=== PATIENT | female | born 1950 | race Caucasian/White ===

== ENCOUNTER 2021-09-29 20:20 | Emergency (ER) | payer BC, MEDICARE, OTHER, SELFPAY ==
[2021-09-29] MEDS ORDERED: Ondansetron 4 MG/2 ML SDV IVPUSH ONE (21:27)
[2021-09-29] MEDS ORDERED: Sodium Chloride 0.9% 10 ML Syringe FLUSH PRN (21:27)
[2021-09-29] MEDS ORDERED: HYDROmorphone 0.5 MG/0.5 ML Syringe IVPUSH ONE ×2 (21:27→21:58)
[2021-09-29] MEDS ORDERED: Sodium Chloride 0.9% 1,000 ML IV SCH (21:30)
[2021-09-29 22:14] LABS: ESTIMATED GFR 60 mL/min (>60)
[2021-09-29 22:19] VITALS: BP 134/71; PULSE 71
[2021-09-29] MEDS ORDERED: Morphine 2 MG/ML SYRINGE IVPUSH ONE ×2 (22:47)
== END 2021-09-29 23:15 ==
LOC: JP.ED 20:20
DX: S72.002A Fracture of unspecified part of neck of left femur, initial encounter for closed fracture (principal); Z88.0 Allergy status to penicillin; Z79.899 Other long term (current) drug therapy; Z20.822 Contact with and (suspected) exposure to COVID-19; W18.30XA Fall on same level, unspecified, initial encounter
CPT/HCPCS: 36415; 73502; 80053; 85025; 85610; 85730; 93005; 93010; 96361; 96374; 96375; 99284; J1170; J2270; J2405; J7030; U0002